=== PATIENT | male | born 1950 | race Caucasian/White ===

== ENCOUNTER → 2023-11-20 08:27 | Outpatient (REF) | payer MEDICARE, OTHER, SELFPAY ==
[2023-11-20 10:58] LABS: INR 1.02; PT 13.4 Sec (11.4-14.6)
[2023-11-20 10:59] LABS: APTT 38.8 Sec (23.4-35.0)
== END ==
LOC: SDSPAT 08:27
PROVIDERS: ATTENDING PHYSICIAN Urology; FAMILY PHYSICIAN Family Medicine
DX: N32.89 Other specified disorders of bladder (principal)
CPT/HCPCS: 36415; 85610; 85730; 93005

== ENCOUNTER 2023-12-04 06:24 | Day surgery (SDC) | payer MEDICARE, OTHER, SELFPAY ==
[2023-11-20 13:27] VITALS: BMI 26.9
[2023-12-04] VITALS (14 sets, daily range): BP systolic 69–165; BP diastolic 47–96; BMI 26.9
[2023-12-04] MEDS: NORMOSOL-R 1000 IV (11:00)
[2023-12-04] MEDS: CYSVIEW KIT 100 MG INTRAVES (11:06)
[2023-12-04] MEDS: SYRINGE NON-PUMP 50 ML IRRIG ×2 (15:38→15:39)
[2023-12-04] MEDS: SYRINGE NON-PUMP 50 MG IRRIG ×2 (15:38→15:39)
== END 2023-12-04 18:26 | disposition home or self-care (01) ==
LOC: SDS 06:24
PROVIDERS: ATTENDING PHYSICIAN Urology
DX: C67.0 Malignant neoplasm of trigone of bladder (principal); D49.4 Neoplasm of unspecified behavior of bladder; N40.0 Benign prostatic hyperplasia without lower urinary tract symptoms; N32.0 Bladder-neck obstruction
CPT/HCPCS: 52240; 88305; 88307; 93005; A9589

== ENCOUNTER → 2024-01-29 06:30 | Day surgery (SDC) | payer MEDICARE, OTHER, SELFPAY | LOC: GI 06:30 | PROVIDERS: ATTENDING PHYSICIAN Specialist | DX: R19.5 Other fecal abnormalities (principal); Z12.11 Encounter for screening for malignant neoplasm of colon; D12.2 Benign neoplasm of ascending colon; D12.3 Benign neoplasm of transverse colon; D12.0 Benign neoplasm of cecum | CPT/HCPCS: 45385; 45380; 88305 ==

== ENCOUNTER 2024-07-01 06:30 | Day surgery (SDC) | payer MEDICARE, OTHER, SELFPAY ==
[2024-06-28 09:40] VITALS: BMI 27.0
[2024-07-01 11:32] VITALS: BMI 27.0
[2024-07-01 11:35] VITALS: BP 148/87
[2024-07-01] MEDS: NORMOSOL-R/PLASMALYTE-A 1000 IV (11:50)
[2024-07-01 15:00] VITALS: BP 148/87
--- NOTE | 2024-07-01 15:01 | W.IMMPOSTOP ---
Surgical Immed Post Op Note
-
Primary Surgeon: Madeleine
Assisting Surgeon: none
Pre-op Diagnosis: L parapelvic renal cyst, renal colic
Post-op Diagnosis: same
Procedure Performed: Robotic L renal cyst decortication
Anesthesia Type: general
Specimen / Cultures: none
Estimated Blood Loss: 10cc
Complications: none
Operative Findings: successful drainage of L parapelvic cyst, removal of cyst wall
[2024-07-01] MEDS: TORADOL 15 MG IV (15:25)
[2024-07-01 15:49] VITALS: BP 157/83
[2024-07-01 16:06] VITALS: BP 156/93
[2024-07-01 16:28] VITALS: BP 157/83; BP 164/94
== END 2024-07-01 19:25 | disposition home or self-care (01) ==
LOC: SDS 06:30
PROVIDERS: ATTENDING PHYSICIAN Urology
DX: N28.1 Cyst of kidney, acquired (principal); N23 Unspecified renal colic
CPT/HCPCS: 50541; 86900; 86901

== ENCOUNTER → 2024-12-23 12:58 | Outpatient (REF) | payer MEDICARE, OTHER, SELFPAY | LOC: HWEVLT 12:58 | PROVIDERS: ATTENDING PHYSICIAN Radiology Vascular & Interventional Radiology | DX: I83.892 Varicose veins of left lower extremity with other complications (principal) | CPT/HCPCS: 93971 ==

== ENCOUNTER → 2025-05-05 08:17 | Outpatient (REF) | payer MEDICARE, OTHER, SELFPAY | LOC: HWEVLT 08:17 | PROVIDERS: ATTENDING PHYSICIAN Radiology Diagnostic Radiology | DX: I83.892 Varicose veins of left lower extremity with other complications (principal) | CPT/HCPCS: 36478; C1769 ==

== ENCOUNTER → 2025-05-19 09:14 | Outpatient (REF) | payer MEDICARE, OTHER, SELFPAY | LOC: HWEVLT 09:14 | PROVIDERS: ATTENDING PHYSICIAN Radiology Vascular & Interventional Radiology | DX: I83.892 Varicose veins of left lower extremity with other complications (principal) | CPT/HCPCS: 93971 ==

== ENCOUNTER → 2025-09-16 07:30 | Outpatient (REF) | payer MEDICARE, OTHER, SELFPAY ==
[2025-09-16 08:51] LABS: Hematocrit 41.3 % (39.0-52.0); Hemoglobin 14.3 g/dL (13.0-18.0); Mean Corp Hgb Conc. 34.6 g/dL (33.0-37.0); Mean Corpuscular Volume 86.0 fL (80.0-94.0); Platelet Count 214 10^3/uL (130-400); Red Cell Dist. Width 12.4 % (11.5-14.5)
[2025-09-16 09:20] LABS: Blood Urea Nitrogen 21 mg/dl (9-20); Calcium 9.4 mg/dl (8.4-10.2); Carbon Dioxide 30 mmol/L (22-30); Chloride 95 mmol/L (98-107); Glucose 107 mg/dl (70-99); Potassium 4.8 mmol/L (3.5-5.1); Sodium 128 mmol/L (135-145); eGFR > 60.00
== END ==
LOC: SDSPAT 07:30
PROVIDERS: ATTENDING PHYSICIAN Urology; FAMILY PHYSICIAN Physician Assistant
DX: Z01.818 Encounter for other preprocedural examination (principal)
CPT/HCPCS: 80048; 85027; 93005

== ENCOUNTER 2025-09-20 06:25 | Day surgery (SDC) | payer MEDICARE, OTHER, SELFPAY ==
[2025-09-16 07:45] VITALS: BMI 27.1
--- NOTE | 2025-09-16 13:27 | PTCARENOTE ---
Na+ 128 collected on 09/16/25; Ann @ 's office was notified.
--- NOTE | 2025-09-16 14:45 | PTCARENOTE ---
Dr. Griffin made aware of Na 128. No further action required.
[2025-09-20] VITALS (14 sets, daily range): BP systolic 147–184; BP diastolic 93–107; BMI 27.1
[2025-09-20] MEDS: NORMOSOL-R/PLASMALYTE-A 1000 IV (08:45)
[2025-09-20] MEDS: CYSVIEW KIT 100 MG INTRAVES (08:45)
[2025-09-20 09:20] LABS: Blood Urea Nitrogen 15 mg/dl (9-20); Calcium 9.4 mg/dl (8.4-10.2); Carbon Dioxide 28 mmol/L (22-30); Chloride 100 mmol/L (98-107); Estimated Creatinine Clearance 80 ml/min; Glucose 108 mg/dl (70-99); Potassium 4.2 mmol/L (3.5-5.1); Sodium 133 mmol/L (135-145); eGFR > 60.00
[2025-09-20] MEDS: SYRINGE NON-PUMP 50 MG IRRIG ×2 (10:24→10:25)
[2025-09-20] MEDS: SYRINGE NON-PUMP 50 ML IRRIG ×2 (10:24→10:25)
== END 2025-09-20 13:01 | disposition home or self-care (01) ==
LOC: SDS 06:25
PROVIDERS: ATTENDING PHYSICIAN Urology
DX: C67.9 Malignant neoplasm of bladder, unspecified (principal)
CPT/HCPCS: 52234; C9738; 80048; 88305; 88307; A9589; J9201